=== PATIENT | male | born 1965 | race African-American/Black ===

== ENCOUNTER 2019-01-26 09:36 | Emergency (ER) | payer OTHER ==
[~2019-01-26] VITALS: Ht 180.3 cm; Wt 75.7 kg
--- NOTE | 2019-01-26 10:11 | NUR ---
PATIENT PRESENTS TO ED TODAY FOR THROAT PAIN/BURNING AFTER ACCIDENTALLY CONSUMING AN UNKNOWN CHEMICAL THIS AM AT 0750. 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 CALL LIGHT WITHIN REACH.
[2019-01-26] MEDS ORDERED: CYAN1TAB29 PO (10:15)
[2019-01-26] MEDS ORDERED: VITA1CAP PO (10:15)
[2019-01-26] MEDS ORDERED: CHOL400T55 PO (10:16)
[2019-01-26] MEDS ORDERED: ASCO100019 PO (10:16)
--- NOTE | 2019-01-26 10:42 | NUR ---
PATIENT AMB WITH STEADY GAIT TO BATHROOM, NADN.
[2019-01-26 11:24] LABS: ALBUMIN 3.9 g/dL (3.4-5.0); ANION GAP 2 mmol/L (5-15); CALCIUM 9.5 mg/dL (8.5-10.1); CHLORIDE 103 mmol/L (98-107); CREATININE 1.13 mg/dL (0.7-1.3)
--- NOTE | 2019-01-26 11:32 | NUR ---
RESULTS BACK, CHART UP FOR RECHECK.
[2019-01-26 12:09] VITALS: BP 138/81
== END 2019-01-26 12:11 | disposition home or self-care (01) ==
LOC: ED 10:53
DX: T65.91XA Toxic effect of unspecified substance, accidental (unintentional), initial encounter (principal); R10.84 Generalized abdominal pain; Y92.89 Other specified places as the place of occurrence of the external cause
CPT/HCPCS: 36415; 80048; 80307; 82040; 99283

== ENCOUNTER 2020-06-23 15:17 | Outpatient (CLI) | payer OTHER ==
[~2020-06-23 15:17] MED LIST: ASCO100019 PO; CHOL400T55 PO; CYAN1TAB29 PO; VITA1CAP PO
== END 2020-06-23 23:59 | disposition home or self-care (01) ==
LOC: LAB 15:17
PROVIDERS: ATTEND Physician Assistant
DX: N52.9 Male erectile dysfunction, unspecified (principal)
CPT/HCPCS: 36415; 84403